=== PATIENT | female | born 2000 | race Caucasian/White ===

== ENCOUNTER 2023-04-20 17:08 | Emergency (ER) | payer OTHER, SELFPAY ==
[2023-04-20 17:18] VITALS: BP 121/77; PULSE 94; RESP 18; TEMP 36.2; O2SAT 97; BMI 31.8
--- NOTE | 2023-04-20 17:26 | CRLHL7_ITS ---
For Patients: As a result of the Century Cures Act, medical imaging exams and procedure reports are released immediately into your electronic medical record. You may view this report before your referring provider. If you have questions, please contact your health care provider. INDICATION: Question left abscess. TECHNIQUE: CT images acquired through the neck following intravenous contrast. COMPARISON: None. FINDINGS Asymmetric enlargement of the left palatine tonsil. Peripherally enhancing lesion in the left peritonsillar region measuring approximately 8 x 8 x 12 mm (TR/AP/CC), compatible with abscess. Mild stranding within the left parapharyngeal fat. No retropharyngeal edema. Mild narrowing of the oropharyngeal airway. The hypopharynx and larynx are widely patent. No enhancing lesions within the oral cavity or floor of mouth. The parotid and submandibular glands are unremarkable. Enlarged bilateral level II lymph nodes are nonspecific, though demonstrate elongated morphology and are most likely reactive. Limited images through the brain are without pathologic intracranial enhancement. The visualized paranasal sinuses and mastoid air cells are clear. No aggressive osseous lesions. No concerning opacities in the visualized lungs. IMPRESSION: 1. Left peritonsillar abscess measuring 1.2 cm associated with mild narrowing of the oropharyngeal airway and inflammatory stranding in the left parapharyngeal space. 2. Multiple enlarged bilateral level II lymph nodes are likely reactive. Please note that all CT scans at this facility use dose modulation, iterative reconstruction, and/or weight-based dosing when appropriate to reduce radiation dose to as low as reasonably achievable. Dictated by Kam Osorio MD @ 04/20/2023 6:45:24 PM (Electronically Signed)
--- NOTE | 2023-04-20 18:24 | ED.NURSE ---
20G IV placed in pt's LEFT ac by radiology. IV patent and intact.
--- NOTE | 2023-04-20 18:26 | ED.GENADULT ---
HPI - General Adult General Chief complaint: Sore Throat Stated complaint: sore throat, enlarged tonsils Time Seen by Provider: 04/20/23 18:19 History of Present Illness HPI narrative: This 22-year-old female comes in with her mother because of sore throat that is been present for the past 2 weeks. She was sent here for CT scan with suspicion of a peritonsillar abscess. The patient states that she has been taking [id number] medicines and is also finished of 5 day course of a steroid. She does not report any fevers. She feels that her left side of her throat is more swollen and painful. She does have some muffled voice but does not have trismus. Related Data Home Medications Medication Instructions Recorded Confirmed ibuprofen 200 mg tablet (Advil) 200 mg PO Q8H 04/20/23 04/20/23 phenylephrine HCl 10 mg tablet 10 mg PO Q6H 04/20/23 04/20/23 (Sudafed PE) Review of Systems Status of ROS: Reports: 10 or more systems reviewed and unremarkable except as noted in History and below Narrative: Constitutional: No fevers, no weight gain or loss. Eyes: No discharge. No vision changes. HENT: Sore throat as described above. Cardiovascular: No chest pain, no palpitations. Respiratory: No shortness of breath, no wheezes, no cough. Gastrointestinal: No abdominal pain, no vomiting, no diarrhea. Genitourinary: No dysuria, no hematuria. Musculoskeletal: Normal range of motion. Skin: No rashes, no pruritis. Neurological: No dizziness, weakness, sensory change, speech change. Endo/Heme/Allergies: No bruising or bleeding. No polydipsia. Pysch: no suicidality, no anxiety, no insomnia. All other systems reviewed and are negative. [facility] Social History Smoking Status: Never smoker Do you use any of these nicotine containing products: None Second hand tobacco smoke exposure: No How often do you have a drink containing alcohol: never AUDIT-C Alcohol total score: 0 Non-prescribed substance use: denies use service: No Exam Narrative: Exam Narrative: Constitutional: Well-developed, well-nourished, no acute distress. HEENT: Normocephalic, atraumatic. Bilateral pharyngeal erythema and hypertrophy, left greater than right. Cervical lymphadenopathy also left greater than right. She has some muffled voice but no trismus. Neck: Normal range of motion. Nontender. Supple. Heart: Regular. No murmurs. Normal rate. Intact distal pulses. Lungs: Clear to auscultation. No chest discomfort. No wheezes, rhonchi, or rales. Abdomen: Normal bowel sounds. Nontender. No rebound tenderness. Genitalia: Deferred. Back: No midline tenderness. Normal range of motion. Extremities: Normal range of motion. No injury. Skin: Intact. No rash. Warm. No erythema or pallor. Neurologic: No altered sensation. No weakness. Alert and oriented. Psychiatric: No suicidality. No anxiety or depression. No insomnia. Nursing notes and vitals signs are reviewed. Const: Vital Signs, click to edit/add: Vital Signs - 24 hr 04/20/23 17:18 04/20/23 19:42 Temperature 97.1 F L Pulse Rate [Pulse Oximeter] 94 69 Respiratory Rate 18 [facility] 121/77 116/73 Pulse Oximetry 97 99 Oxygen Delivery Me thod Room Air Room Air Course Vital Signs Vital signs: Initial Vital Signs Temperature 97.1 F L 04/20/23 17:18 Temperature Source Temporal Artery Scan 04/20/23 17:18 Pulse Rate 94 04/20/23 17:18 Respiratory Rate 18 04/20/23 17:18 Blood Pressure 121/77 04/20/23 17:18 Blood Pressure Mean 91 04/20/23 17:18 Pulse Oximetry 97 04/20/23 17:18 Oxygen Delivery Method Room Air 04/20/23 17:18 Vital Signs Temperature 97.1 F L 04/20/23 17:18 Pulse Rate 94 04/20/23 17:18 Respiratory Rate 18 04/20/23 17:18 Blood Pressure 121/77 04/20/23 17:18 Pulse Oximetry 97 04/20/23 17:18 Oxygen Delivery Method Room Air 04/20/23 17:18 Temperature 97.1 F L 04/20/23 17:18 Pulse Rate 69 04/20/23 19:42 Respiratory Rate 18 04/20/23 17:18 Blood Pressure 116/73 04/20/23 19:42 Pulse Oximetry 99 04/20/23 19:42 Oxygen Delivery Method Room Air 04/20/23 19:42 Medications Administered Medications: Generic Name Dose Route Start Last Admin Trade Name Freq PRN Reason Stop Dose Admin Dexamethasone 10 mg 04/20/23 19:24 04/20/23 19:38 Dexamethasone 4 Mg/Ml Vial IV 04/20/23 19:25 10 mg ONCE ONE Administration Ampicillin Sodium/Sulbactam 100 mls @ 200 mls/hr 04/20/23 19:24 04/20/23 19:41 Sodium 3 gm/ Sodium Chloride IVPB 04/20/23 19:25 200 mls/hr ONCE ONE Administration Medical Decision Making MDM Narrative Medical decision making narrative: This patient comes in with 2 weeks of sore throat that now includes worsening discomfort and muffled voice. An IV is established and CT imaging of the soft tissue of the neck is obtained. This does show evidence of a left peritonsillar abscess measuring 1.2 cm. I spoke with ear nose and throat physician Dr. Tillman regarding this finding and he recommended admission into the hospital for IV antibiotics and steroid. I made this recommendation to the patient and her mother who states that they would really prefer to return home if possible. I spoke again with Dr. Tillman regarding this request to stated that it was okay for them to return home but will need to come back for repeat dose of these medicines. The patient received IV doses of Unasyn 3 mg and Decadron 10 mg here. An order is placed for repeat doses of these medicines. Imaging Data CT Soft tissue Neck: Radiologist's impression: 1. Left peritonsillar abscess measuring 1.2 cm associated with mild narrowing of the oropharyngeal airway and inflammatory stranding in the left parapharyngeal space. 2. Multiple enlarged bilateral level II lymph nodes are likely reactive. Discharge Plan Discharge Clinical Impression: Abscess, peritonsillar Patient Disposition: Home w/ Parent or Adult Condition: Stable Additional Instructions: Return in 6-12 hours for repeat IV doses of Unasyn and Decadron. An order is placed for this to occur so that she do not need to be evaluated again by have physician unless symptoms are not improving or worsening. Prescriptions: No Action ibuprofen [Advil] 200 mg tablet 200 mg PO Q8H phenylephrine HCl [Sudafed PE] 10 mg tablet 10 mg PO Q6H Follow Up/Referrals: Karla Vila MD [Primary Care Provider] - Stand Alone Forms: [employer] Info Instructions
[2023-04-20] MEDS: dexAMETHasone 4 MG/ML VIAL 10 MG IV (19:38)
[2023-04-20] MEDS: AMPICILLIN/SULBACTAM 3 GM in 0.9 % SODIUM CHLORIDE Mini-bag 100 ML IVPB (19:41)
[2023-04-20 19:42] VITALS: BP 116/73; PULSE 69; O2SAT 99
== END 2023-04-20 20:25 | disposition home or self-care (01) ==
PROVIDERS: Emergency Provider Emergency Medicine Emergency Medical Services; PCP Family Medicine
DX: J36 Peritonsillar abscess (principal)
CPT/HCPCS: 70491; 96365; 96375; 99283; 99284; J0295; J1100; Q9967

== ENCOUNTER 2023-04-21 13:38 | Outpatient (CLI) | payer OTHER, SELFPAY ==
[2023-04-21] MEDS: AMPICILLIN/SULBACTAM 3 GM in 0.9 % SODIUM CHLORIDE Mini-bag 100 ML IVPB ×3 (07:30→20:18)
[2023-04-21] MEDS: dexAMETHasone 10 MG/ML inj IVP ×2 (08:00→20:17)
[2023-04-21 08:36] VITALS: BP 128/83; PULSE 88; RESP 18; TEMP 36.4; O2SAT 97
[2023-04-21 13:38] VITALS: BP 122/81; PULSE 87; RESP 16; TEMP 36.2; O2SAT 97
[2023-04-21 20:20] VITALS: BP 128/83; PULSE 88; RESP 18; TEMP 36.7; O2SAT 97
[2023-04-21 20:21] VITALS: BP 128/83; PULSE 88; RESP 18; TEMP 36.7; O2SAT 97
[2023-04-21 20:32] VITALS: BP 132/75; PULSE 69; RESP 18; TEMP 37; O2SAT 96
--- NOTE | 2023-04-21 20:54 | ED.NURSE ---
iv abx infused without difficulty. iv dc'd. catheter intact. vitals stable. pt. dc'd home.
== END 2023-04-21 23:00 | disposition home or self-care (01) ==
LOC: EDOUT 07-08 13:38
PROVIDERS: PCP Family Medicine; Visit Provider Otolaryngology
DX: J36 Peritonsillar abscess (principal)
CPT/HCPCS: 80307; 96365; 96366; 96372; J0295; J1100

== ENCOUNTER 2023-05-21 11:03 | Emergency (ER) | payer BC, SELFPAY ==
[2023-05-21 11:08] VITALS: BP 124/78; PULSE 72; RESP 16; TEMP 35.7; O2SAT 97; BMI 33.1
--- NOTE | 2023-05-21 12:21 | ED_ITS ---
HPI - General Adult General Date Seen: 05/21/23 Chief complaint: Sore Throat Stated complaint: sore throat Time Seen by Provider: 05/21/23 11:09 Source: patient Mode of arrival: ambulatory Limitations: no limitations History of Present Illness HPI narrative: Patient is a 22-year-old female presenting for left-sided throat pain. She states she had these exact same symptoms little over a month ago and they were eventually were pain worsened and up needing IV antibiotics for a peritonsillar abscess. She did see Dr. Guajardo for this and ended up finishing a 10 day course of Augmentin. Symptoms resolved and she was doing well up until this past couple days which she is noticing the symptoms are coming back. She says there similar to before but not as bad. She is concerned she could be having another abscess. Denies voice changes, difficulty opening and jaw, lightheadedness, dizziness, fevers, chills, weakness, chest pain, shortness of breath. Does states she has some difficulty swallowing due to the pain. has some left ear pain, which she says is also similar to her previous abscess.No other concerns noted Related Data Previous Rx's Medication Instructions Recorded amoxicillin 875 mg-potassium 1 tab PO BID #20 tabs 05/21/23 clavulanate 125 mg tablet prednisone 20 mg tablet 40 mg (2 x 20 mg) PO DAILY #10 tabs 05/21/23 Allergies Allergy/AdvReac Type Severity Reaction Status Date / Time No Known Drug Allergies Allergy Verified 04/21/23 15:01 Review of Systems Status of ROS: Reports: 10 or more systems reviewed and unremarkable except as noted in History and below PFSH [facility] Social History Smoking Status: Never smoker Do you use any of these nicotine containing products: None Second hand tobacco smoke exposure: No How often do you have a drink containing alcohol: never AUDIT-C Alcohol total score: 0 Non-prescribed substance use: denies use service: No Exam Narrative: Exam Narrative: Const: Well-nourished, Well-developed, in mild distress Eyes: PERRL, no conjunctival injection, and symmetrical lids HENT: Atraumatic external nose and ears. Moist mucous membranes. uvula midline, very swollen bilateral tonsils about equal Neck: Symmetric, trachea midline, No thyromegaly. CVS: RRR, No murmurs or gallops. Peripheral pulses 2+ and equal in all extremities RESP: Unlabored respiratory effort. Clear to auscultation bilaterally. GI: Nontender/Nondistended, No rebound or guarding. MSK:Extremities w/o deformity, Normal Active ROM Skin: Warm, Dry. No rashes or lesions. Neuro: Normal Muscle tone, No focal neurological deficits. Psych: Awake, Alert, & Oriented x3. Appropriate mood and affect. Const: Vital Signs, click to edit/add: Vital Signs - 24 hr 05/21/23 11:08 Temperature 96.2 F L Pulse Rate [Pulse Oximeter] 72 Respiratory Rate 16 Blood Pressure [[facility]i ght Upper Arm] 124/78 Pulse Oximetry 97 Oxygen Delivery Me thod Room Air Course Vital Signs Vital signs: Initial Vital Signs Temperature 96.2 F L 05/21/23 11:08 Temperature Source Temporal Artery Scan 05/21/23 11:08 Pulse Rate 72 05/21/23 11:08 Respiratory Rate 16 05/21/23 11:08 Blood Pressure 124/78 05/21/23 11:08 Blood Pressure Mean 93 05/21/23 11:08 Blood Pressure Position Sitting 05/21/23 11:08 Pulse Oximetry 97 05/21/23 11:08 Oxygen Delivery Method Room Air 05/21/23 11:08 Vital Signs Temperature 96.2 F L 05/21/23 11:08 Pulse Rate 72 05/21/23 11:08 Respiratory Rate 16 05/21/23 11:08 Blood Pressure 124/78 05/21/23 11:08 Pulse Oximetry 97 05/21/23 11:08 Oxygen Delivery Method Room Air 05/21/23 11:08 Temperature 96.2 F L 05/21/23 11:08 Pulse Rate 72 05/21/23 11:08 Respiratory Rate 16 05/21/23 11:08 Blood Pressure 124/78 05/21/23 11:08 Pulse Oximetry 97 05/21/23 11:08 Oxygen Delivery Method Room Air 05/21/23 11:08 Medications Administered Medications: Discontinued Medications Generic Name Dose Route Start Last Admin Trade Name Freq PRN Reason Stop Dose Admin Dexamethasone 10 mg 05/21/23 13:00 05/21/23 12:49 Dexamethasone 2 Mg Tablet PO 05/21/23 13:01 10 mg ONCE ONE Administration Ampicillin Sodium/Sulbactam 100 mls @ 200 mls/hr 05/21/23 11:51 05/21/23 13:17 Sodium 3 gm/ Sodium Chloride IVPB 05/21/23 11:52 Infused ONCE ONE Infusion Medical Decision Making MDM Narrative Medical decision making narrative: Patient is a 22-year-old female presenting for left-sided throat. These are similar symptoms to 1 month ago when she began to develop a peritonsillar abscess. The symptoms are not as bad. With her history of though I am concerned she is developing another abscess. No obvious deviation seen on exam but I will start her on a dose of Unasyn. Monos, strep, COVID/flu/RSV test all ordered. Those tests all returned negative. While I am concerned about a peritonsillar abscess forming her last 1 was very small and did not need any drainage in the symptoms are not as bad. Due that I believe is very early in the process and very unlikely there would be a drainable abscess at this time. I do not think is necessary to have this 22-year-old female go through another round of CT radiation this soon. I spoke to her and her mother about this plan and they are agreeable. She will be given 1 dose of Unasyn here and placed on Augmentin. She is also given some Decadron here and discharged with some steroids which she says has helped in the past for these symptoms. I informed the follow-up with her ENT provider again which they are agreeable to Lab Data Labs: Lab Results 05/21/23 05/21/23 Range/Units 12:00 12:15 SARS-CoV-2 (PCR) Negative SARS-CoV-2 (Negative) Monoscreen Negative (Negative) Influenza Type A (PCR) Negative PCR FLU A (Negative) Influenza Type B (PCR) Negative PCR FLU B (Negative) Group A Strep DNA NOT DETECTED (Not Detectd) Discharge Plan Discharge Clinical Impression: Acute tonsillitis Qualifiers: Pharyngitis/tonsillitis etiology: unspecified etiology Qualified Code(s): J03.90 - Acute tonsillitis, unspecified Patient Disposition: Home, Self-Care Condition: Stable Instructions: Tonsillitis (ED) Additional Instructions: take the antibiotics as directed. If her voice starts becoming more muffled or she has difficulty opening her jaw, or any other concerning changes to her symptoms return to the emergency department for re-evaluation. Recommend you follow-up with ENT for re-evaluation of her tonsils. Prescriptions: New prednisone 20 mg tablet 40 mg PO DAILY Qty: 10 0RF amoxicillin-pot clavulanate 875-125 mg tablet 1 tab PO BID Qty: 20 0RF Follow Up/Referrals: Karla Vila MD [Primary Care Provider] - Stand Alone Forms: [employer] Info Instructions
[2023-05-21 12:30] LABS: Mono Screen* Negative (Negative)
[2023-05-21] MEDS: AMPICILLIN/SULBACTAM 3 GM in 0.9 % SODIUM CHLORIDE Mini-bag 100 ML IVPB (12:37)
[2023-05-21 12:46] LABS: Strep A DNA Probe* NOT DETECTED (Not Detectd)
[2023-05-21] MEDS: dexAMETHasone 2 MG TABLET 10 MG PO (12:49)
[2023-05-21 12:52] LABS: PCR FLU A Negative PCR FLU A (Negative); PCR FLU B Negative PCR FLU B (Negative)
[2023-05-21 13:00] LABS: SARS PCR* Negative SARS-CoV-2 (Negative)
== END 2023-05-21 13:30 | disposition home or self-care (01) ==
PROVIDERS: Emergency Provider Student in an Organized Health Care Education/Training Program; PCP Family Medicine
DX: J03.90 Acute tonsillitis, unspecified (principal)
CPT/HCPCS: 36415; 86308; 87631; 87651; 96365; 99283; 99284; A9270; J0295

== ENCOUNTER 2024-04-23 21:12 | Emergency (ER) | payer BC, SELFPAY ==
[2024-04-23 21:14] VITALS: BP 113/71; PULSE 113; RESP 16; TEMP 37.6; O2SAT 95; BMI 31.5
--- NOTE | 2024-04-23 21:40 | ED_ITS ---
HPI - Fever General Time Seen by Provider: 21:40 Date Seen: 04/23/24 Chief Complaint: Fever Stated Complaint: Temp 103.1 Time Seen by Provider: 04/23/24 21:18 Source: patient and family (Mom is with.) Mode of arrival: ambulatory Limitations: no limitations History of Present Illness HPI Narrative: This 23-year-old female is coming into the ER with 5 days of fever. She had 3 days of fever proceeding development of symptoms of right upper back pain, epigastric abdominal pain. She has had a headache with her symptoms. She denies any otalgia, no upper respiratory symptoms, no cough or chest symptoms. She has not really had any nausea or vomiting but has not been hungry. Denies any diarrhea. No change in urinary symptoms. 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 She is unaware of any known ill contacts. No recent travel. She has been alternating Tylenol and ibuprofen, she has been sweating through her pajamas at night. She went home from [employer] to stay in her parents whom live in [place]. She took about a 4 hour nap and woke up and was sweating through her clothes. Their scheduled for a clinic visit tomorrow but she felt sick enough tonight that she felt she needed to be seen. She has had a history of tonsillitis and peritonsillar abscess but absolutely has no throat symptoms at this time. She last took ibuprofen about 750 tonight, Tylenol about 4:00 p.m.. She has been trying some Tums which does seem to help some of the epigastric symptoms she has been having. elicited complaint: fever Related Data Previous Rx's ?Medication ?Instructions ?Recorded amoxicillin 875 mg-potassium 1 tab PO BID #20 tabs 03/27/24 clavulanate 125 mg tablet ciprofloxacin HCl 500 mg tablet 500 mg PO BID #19 tabs 04/24/24 Allergies Allergy/AdvReac Type Severity Reaction Status Date / Time No Known Drug Allergies Allergy Verified 04/23/24 23:07 Review of Systems Status of ROS Reports: 6 or more systems reviewed and unremarkable except as noted in History and below [facility] Social History Smoking Status: Never smoker Do you use any of these nicotine containing products: None Second hand tobacco smoke exposure: No How often do you have a drink containing alcohol: never AUDIT-C Alcohol total score: 0 Non-prescribed substance use: denies use service: No Exam Const Vital Signs, click to edit/add: Vital Signs - 24 hr 04/23/24 21:14 Temperature 99.6 F Pulse Rate [Right Radial] 113 H Respiratory Rate 16 Blood Pressure [Right Upper Arm] 113/71 Pulse Oximetry 95 Oxygen Delivery Method Room Air This 23-year-old female is alert interactive, no apparent distress. Do see where she is sweating through her T-shirt. Skin is warm and dry on her arms and neck, not diaphoretic. Pupils equal round reactive, sclera clear. Symmetrical facial function. Oropharynx with well-hydrated mucosa, tonsils are about 2+ but no exudates erythema, oral mucosal looks normal. Neck is supple, no adenopathy, no thyromegaly masses or nodules. Lungs are clear, good air entry, no wheezing or crackles. CV regular rate and rhythm, no murmur. Maybe some mild CVA tenderness. Abdomen is soft, nondistended, normal bowel sounds. She has epigastric to right upper quadrant abdominal pain on my palpation. I do not feel any organomegaly, no rebound or guarding. Skin visualized without any rash. Documenting provider has reviewed patient's vital signs: yes Course Course ED Course: Edie has had fever for 5 days now, there is some right flank pain and some epigastric to right upper quadrant abdominal pain. Her mom and I have discussed etiologies including possible gallbladder, pyelonephritis. Will place an IV as we may end up needing CT imaging. Will start with full complement of labs including inflammatory markers as well. Consider blood culture depending on workup but with her being hemodynamically stable, with blood culture shortage, do not feel it is indicated at this point. She will try to give us urinalysis as soon as possible. Reevaluation(s) Time of Reevaluation #1: 22:32 Reevaluation #1: Reviewed with patient and her mom that the urinalysis is positive for infection. Her lactate is normal but the rest of the labs are not back yet. Discussed imaging, she will be leaving in 2 weeks to study abroad in [facility]. With the level of pain she is having, certainly could be from 5 days of untreated pyelonephritis but want to ensure that there are no complications such as perine phric abscess, etc.. They are in agreement to proceed with imaging and would like to have this done. Time of Reevaluation #2: 23:17 Reevaluation #2: Patient is back from CT. Did review that this is appearing to be pyelonephritis. We need to await her CT imaging to come back. If uncomplicated pyelonephritis, will plan on course of oral Cipro on review of literature. The did remember that she had some urinary symptoms about a month ago, push fluids and seemed to go away and thus did not pursue anything further. She does note now that she is started to get up at night urinate which she typically has not done in the past. Time of Reevaluation #3: 23:51 Reevaluation #3: Have reviewed with patient and mom CT report, consistent with pyelonephritis. Will give oral cipro here and send rest into pharmacy. She certainly seems stable for outpatient oral trial of antibiotics. Discussed signs and symptoms for return. Vital Signs Vital signs: Initial Vital Signs Temperature 99.6 F 04/23/24 21:14 Temperature Source Temporal Artery Scan 04/23/24 21:14 Pulse Rate 113 H 04/23/24 21:14 Pulse Rhythm Regular 04/23/24 21:14 Respiratory Rate 16 04/23/24 21:14 Blood Pressure 113/71 04/23/24 21:14 Blood Pressure Mean 85 04/23/24 21:14 Pulse Oximetry 95 04/23/24 21:14 Oxygen Delivery Method Room Air 04/23/24 21:14 Vital Signs Temperature 99.6 F 04/23/24 21:14 Pulse Rate 113 H 04/23/24 21:14 Respiratory Rate 16 04/23/24 21:14 Blood Pressure 113/71 04/23/24 21:14 Pulse Oximetry 95 04/23/24 21:14 Oxygen Delivery Method Room Air 04/23/24 21:14 Temperature 99.6 F 04/23/24 21:14 Pulse Rate 113 H 04/23/24 21:14 Respiratory Rate 16 04/23/24 21:14 Blood Pressure 113/71 04/23/24 21:14 Pulse Oximetry 95 04/23/24 21:14 Oxygen Delivery Method Room Air 04/23/24 21:14 Medications Administered Medications: Discontinued Medications Generic Name Dose Route Start Last Admin Trade Name Freq PRN Reason Stop Dose Admin Sodium Chloride 500 mls @ 500 mls/hr 04/23/24 22:34 04/23/24 22:41 0.9 % Sodium Chloride 500 Ml IV 04/23/24 23:33 500 mls/hr .Q1H ONE Administration Ketorolac Tromethamine 15 mg 04/23/24 22:34 04/23/24 22:41 Ketorolac 15 Mg/Ml Inj IVP 04/23/24 22:35 15 mg ONCE ONE Administration MDM - Fever Lab Data Attestation: I reviewed the patient's lab results. Labs: Lab Results 04/23/24 04/23/24 04/23/24 Range/Units 21:38 21:45 22:00 WBC 16.95 H (4.50-11.00) K/uL RBC 4.51 (4.00-5.20) m/uL Hgb 12.3 (12.0-16.0) gm/dL Hct 37.9 (33.0-51.0) % MCV 84 (80-100) fL MCH 27 (26-34) pg MCHC 33 (32-36) gm/dL RDW Coeff of Courtney 12.4 (11.5-15.5) % Plt Count 325 (140-440) K/uL Neut % (Auto) 77.1 H (42.0-72.0) % Lymph % (Auto) 8.3 L (20-44) % [place] % (Auto) 13.9 H (0.0-11.0) % Eos % (Auto) 0.1 (0.0-7.0) % Baso % (Auto) 0.1 (0.0-3.0) % Neut # (Auto) 13.10 H (1.7-7.0) K/uL Lymph # (Auto) 1.40 (0.90-2.90) K/uL [place] # (Auto) 2.40 H (0.00-0.90) K/UL Eos # (Auto) 0.00 (0.00-0.50) K/uL Baso # (Auto) 0.00 (0.00-0.30) K/uL Abs Immat Gran (auto) 0.10 (0.00-0.30) K/uL Imm/Tot Granulo (auto) 0.5 % Diff Slide Review Acceptable Review (Acceptable) Sodium 134 L (135-149) mmol/L Potassium 3.2 L (3.6-5.1) mmol/L Chloride 99 (96-114) mmol/L Carbon Dioxide 28 (20-32) mmol/L Anion Gap 7 (7-15) mEq/L BUN 10 (5-24) mg/dL Creatinine 0.8 (0.5-1.5) mg/dL Estimated Creat Clear 104.14 Estimated GFR 107 ml/min Glucose 114 (60-115) mg/dL Lactate 0.8 (0.5-1.9) mmol/L Calcium 9.5 (8.4-10.6) mg/dL Total Bilirubin 0.3 (0.1-1.5) mg/dL Direct Bilirubin 0.2 (0.0-0.5) mg/dL AST 23 (12-35) U/L ALT 19 (4-35) U/L Alkaline Phosphatase 93 (40-150) U/L C-Reactive Protein 25.6 H (0.5-1.0) mg/dL Total Protein 7.5 (6.0-8.3) g/dL Albumin 4.0 (3.3-5.0) g/dL Lipase 37 (23-300) U/L Procalcitonin 0.31 (<0.50) ng/mL Urine Color Yellow (Yellow) Urine Appearance Slightly Cloudy A (Clear) Urine pH 6.5 (5.0-8.5) Ur Specific [place] 1.015 (1.000-1.030) Urine Protein 1+ A (Negative) Urine Glucose (UA) Negative (Negative) Urine Ketones Negative (Negative) Urine Blood Trace-lysed A (Negative) Urine Nitrite Positive A (Negative) Urine Bilirubin Negative (Negative) Urine Urobilinogen 0.2 (0.2-1.0) Ur Leukocyte Esterase 2+ A (Negative) Urine RBC 0-2 (0-2) Urine WBC 5-10 A (0-5) Ur Squamous Epith Cells Few (None-Few) Urine Bacteria Moderate A (None) SARS-CoV-2 (PCR) Negative SARS-CoV-2 (Negative) Influenza Type A (PCR) Negative PCR FLU A (Negative) Influenza Type B (PCR) Negative PCR FLU B (Negative) Imaging Data CT scan - abdomen: Attestation: I have reviewed the pertinent imaging results. Radiologist's impression: Patient: EDIE MACDONALD Facility:?[facility] Patient ID:?[id number] Site Patient ID:?[id number]. Site :?[id number] Study:?CT-Abdomen/Pelvis W/ 95CC ISOVUE 370-04/23/2024 11:09:51 PM Ordering Physician:Beth Tejeda Final Report: INDICATION: Right flank pain. Fever. TECHNIQUE: Multiplanar CT examination of the abdomen and pelvis was performed after the administration of 95 mL Isovue 370 intravenous contrast. COMPARISON: None. FINDINGS: Lower chest: No focal consolidation. Normal heart size. No pleural effusions or pneumothorax. Dependent atelectasis. Small hiatal hernia. Liver: Unremarkable. Gallbladder: Unremarkable. Biliary: Unremarkable. Pancreas: Within normal limits. Spleen: Simple appearing splenic cystic lesion. Adrenal glands: Unremarkable. Renal/ureters/bladder: Heterogeneous striated enhancement of the right renal parenchyma without abscess formation. Mild right perinephric fat stranding. There is hyperenhancement of the renal pelvis and ureter with adjacent periureteral fat stranding. The left kidney appears normal without obstructive uropathy. No obstructing urolithiasis identified. The bladder is within normal limits. Pelvis: Intrauterine device. No adnexal masses. Gastrointestinal: No bowel wall thickening or bowel obstruction. Normal appendix. No significant colonic diverticulosis. Mild colonic stool burden. Vasculature: No aortic aneurysm. The portal vein remains patent. No significant atherosclerotic calcifications. Lymph nodes: No pathologic lymphadenopathy by size criteria. Peritoneum: No free fluid or pneumoperitoneum. No drainable fluid collections. Abdominal wall/soft tissues: Unremarkable. Bones: No acute osseous abnormalities. IMPRESSION: Findings compatible with acute right-sided pyelonephritis/ureteritis. Please note that all CT scans at this facility use dose modulation, iterative reconstruction, and/or weight-based dosing when appropriate to reduce radiation dose to as low as reasonably achievable. Dictated by Yoav Jasso MD @ 04/23/2024 11:49:34 PM (Electronic Signature) Discharge Plan Discharge Clinical Impression: Pyelonephritis Patient Disposition: Home, Self-Care Condition: Stable Instructions: Kidney Infection (ED) Additional Instructions: Continue with Cipro, next dose due tomorrow morning. Take antibiotic as prescribed complete antibiotic. Fine to use Tylenol and ibuprofen alternating per bottle directions for fever and symptom control. You may still run fever and have symptoms for 3-5 days. Overall, you should start to show some mild improvement and not worsening. Push fluids appetite for solids will improve as you feel better. If you have any concerns, feel you are worsening, please seek re-evaluation. Do recommend that you have a follow-up urine culture once the antibiotics are completed to make sure that this is cleared. Activity Level: Activity as Tolerated Prescriptions: New ciprofloxacin HCl 500 mg tablet 500 mg PO BID Qty: 19 0RF No Action amoxicillin-pot clavulanate 875-125 mg tablet 1 tab PO BID Qty: 20 2RF Follow Up/Referrals: Karla Vila MD [Primary Care Provider] - Stand Alone Forms: [employer] Info Instructions
--- OUTSIDE RECORDS SUMMARY | 2024-04-23 21:46 | XMS_ITS | Clinical Summary ---
Author Organization [facility] Address [address] [place] [address] Care Team Providers Care Able Bodied Seaman Name Role Phone Elsewhere, Pcp Primary Care Provider Unavailabl e Source Comments Patient records contain information from all sites at [facility]. For routine questions regarding patient records, call [phone] during business hours, M-F 8:00 AM - 5:00 PM Central Time. Record requests for emergency care only can be directed to [phone] at any time.[facility] Allergies No known active allergies Medications No known medications Immunizations Name Administration Dates Next Due HepA Pediatric/Adolescent 11/13/2013 Influenza, Unspecified 02/23/2016,05/26/2012, MCV4 (Menactra)(Discontinued) 11/13/2013 Tdap 11/13/2013 influenza trivalent LAIV (Na jose angel) (2 years through 49 years) 02/13/2013 typhoid vaccine, parenteral (discontinued) 11/13 Social History Tobacco Use Types Packs/Day Years Used Date Smoking Tobacco: Never Nutrition Answer Date Recorded Nutrition: EVOO Fat Source Unknown 07/17 Nutrition: Servings of Fruits/Vegetables per Day Not on file 07/17/2020 Dental Answer Date Recorded Dental: Regular Dentist Unknown 07/18/19 21 Comments Unknown Sex and Gender Information Value Date Recorded Sex Assigned at Not on file Legal 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 Gender Identity Not on file Sexual Orientation Not on file Last Filed Vital Signs Vital Sign Reading Time Taken Comments Blood Pressure - - Pulse - - Temperature - - Respiratory Rate - - Oxygen Saturation - - Inhaled Oxygen Concentration - - Weight 83.2 kg (183 lb 6.8 oz) 05/02/2020 4:25 P M INDUCTION MACHINE OPERATOR Height 148 cm (4' 10.27) 11/13/2013 7:32 AM CDT Body Mass Index - - Plan of Treatment Health Maintenance Due Date Last Done Comments Cervical/Vaginal Cancer Screening 2002 Chlamydia and Gonorrhea Screening 2002 HIV Screening 2002 Hearing Screening during Well Child Visit 2002 Hepatitis C Screening 2002 TB Screening during Well Child Visit 2002 1 week Well Child Check-Up 2002 1 month Well Child Check-Up 2002 2 month Well Child Check-Up 2002 4 month Well Child Check-Up 01/07/2003 6 month Well Child Check-Up 03/09/2003 9 month Well Child Check-Up 06/09/2003 12 month Well Child Check-Up 09/08/2003 15 month Well Child Check-Up 12/08/2003 18 month Well Child Check-Up 03/09/2004 2 year Well Child Check-Up 09/07/2004 30 month Well Child Check-Up 03/09/2005 3 year Well Child Check-Up 09/07/2005 Well Child Check-Up Completed in Past Year 09/07/2005 4 year Well Child Check-Up 09/07/2006 5 year Well Child Check-Up 09/08/2007 6 year Well Child Check-Up 09/07/2008 7 year Well Child Check-Up 09/07/2009 8 year Well Child Check-Up 09/07/2010 9 year Well Child Check-Up 09/08/2011 10 year Well Child Check-Up 09/07/2012 11 year Well Child Check-Up 09/07/2013 12 year Well Child Check-Up 09/07/2014 13 year Well Child Check-Up 09/08/2015 14 year Well Child Check-Up 09/07/2016 15 year Well Child Check-Up 09/07/2017 16 year Well Child Check-Up 09/07/2018 17 year Well Child Check-Up 09/08/2019 18 year Well Child Check-Up 09/07/2020 19 year Well Child Check-Up 09/07/2021 20 year Well Child Check-Up 09/07/2022 Depression Screening (Annual PHQ-2) 05/16/2023 23 year Well Child Check-Up 09/08/2023 Well Child Check-Up (WCC) 09/08/2023 DTaP,Tdap,and Td Vaccines (7 - Td or Tdap) 11/14/2023 11/13/2013, 11/06/2007, 01/17/2004, Additional history exists COVID-19 Vaccine ( season) 2024 04/06/2023, 02/25/2022, 04/07/2021, Additional history exists Influenza Vaccine (#1) 2024 , 02/25/2022, 03/10/2021, Additional history exists Pneumococcal vaccine (0-64 years) Aged Out 04/15/2003, 02/11/2003, 2002 No longer eligible based on patient's age to complete this topic Hepatitis B Vaccines Completed 01/17/2004, 04/15/2003, 02/11/2003, Additional history exists IPV Vaccines Completed 11/06/2007, 07/2003, 04/15/2003, Additional history exists HPV Vaccines Completed 03/14/2018, 04/27/2017 Meningococcal Vaccine Completed 12/15/2018, 014 Insurance MEDICA MEDICA Care Teams Able Bodied Seaman Relationship Specialty Start Date End Date Elsewhere, Pcp PCP - General 04/15/19
--- OUTSIDE RECORDS SUMMARY | 2024-04-23 21:46 | XMS_ITS | Clinical Summary ---
Author Organization [facility] Address [place], [place] [address] Care Team Providers Care Production Line Manager Name Role Phone Cadence, Karla Lafleur MD Primary Care Provider Allergies No known active allergies Medications amoxicillin-clav ulanate 875-125 mg tablet (AUGMENTIN) TAKE 1 TABLET BY MOUTH TWICE DAILY FOR 10 DAYS 04/21/2023 Active Hospital, Clinic, or Other Facility Administered Medication Ordered Dose Route Frequency Start Date End Date Status levonorgestrel intrauterine device (MIRENA) 1 DeviceIndications:Encounter for female control 1 Device IU Q 7 YEARS 12/31/2021 Active Active Problems No known active problems Immunizations Name Administration Dates Next Due DTaP 11/06/2007,01/17/2004 [id number] (Pediarix) 01/17/2004,1205/2002,02/11/2003,12/06 HIB PRP-OMP (PedvaxHIB) 11/22/2003,02/11/2003, HPV 9 (Gardasil 9) 03/14/2018,04/27/2017 Hepatitis A (Peds) 04/27/2017,11/13/2013 Hepatitis B (Peds) 04/15/2003,02/11/2003, 003 Inactivated Polio Vaccine 11/06/2007,05/2002,02/11/2003,12/06 Influenza A (H1N1), Live Intranasal 04/03/2009 Influenza Virus, Unspecified 04/07/2011 Influenza, IIV3 (Age 6-35 mos) 05/16/2003,2002 Influenza, IIV3 (Age >=3 years) 05/26/19 13,03/12/2008,05/02/2006,03/13,05/20/2003,04/15/2003 Influenza, IIV4 04/06/2023, 8,04/27/2017,02/22 Influenza,LAIV4 Live Intrana jose angel (Flumist) 02/13/2013 MENINGOCOCCAL VACCINE 2 VIAL [id number] (MENVEO) 12/15/2018 MMR 11/06/2007,11/22/2003 Meningococcal Vaccine (Menactra) 11/13/2013 Pneumococcal conj 7-Valent (Prevnar 7) 3,02/11/2003,2002 Tdap 11/13/2013 Typhoid Parenteral,Killed 11/13/2013 Varicella Vaccine 11/06/2007,01/17/2004 Family History Medical History Relation Name Comments No Known Problems Brother No Known Problems Father No Known Problems Mother No Known Problems Sister Relation Name Status Comments Brother Alive Father Alive Mother Alive Sister Alive Social History Tobacco Use Types Packs/Day Years Used Date Smoking Tobacco: Never Smokeless Tobacco: Never Alcohol Use Standard Drinks/Week Comments Never 0 (1 standard drink = 0.6 oz pur e alcohol) PHQ-2 Answer Date Recorded PHQ-2 TOTAL SCORE 0 09/26/2020 Social Connections Answer Date Recorded Do you often feel lonely or isolated from those around you? 0 04/20/2023 Financial Resource Strain Answer Date R ecorded Difficulty of Paying Living Expenses 3 04/20/2023 Difficulty of Paying Living Expenses Not on file 04/20/2023 Food Insecurity Answer Date Recorded Do you worry your food will run out before you are able to buy more? 1 04/20/2023 Transportation Needs Answer Date Record ed Does lack of transportation keep you from medica l appointments? 1 04/20/2023 Does lack of transportation keep you from work, meetings or getting things that you need? 1 04/20/2023 Housing Stability Answer Date Recorded What is your housing situation today? 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 Gender Identity Not on file Sexual Orientation Not on file Obstetrics History Last Filed Vital Signs Vital Sign Reading Time Taken Comments Blood Pressure 100/68 04/29/2023 3:33 PM VP BUSINESS DEVELOPMENT Pulse 76 04/29/2023 3:33 PM VP BUSINESS DEVELOPMENT Temperature 36.8 C (98.3 F) 04/20/2023 3:27 PM VP BUSINESS DEVELOPMENT Respiratory Rate - - Oxygen Saturation 98% 04/29/2023 3:33 PM VP BUSINESS DEVELOPMENT Inhaled Oxygen Concentration - - Weight 91.9 kg (202 lb 9.6 oz) 04/29/2023 3:33 P M VP BUSINESS DEVELOPMENT Height 169 cm (5' 6.54) 04/20/2023 3:27 PM VP BUSINESS DEVELOPMENT Body Mass Index - - Plan of Treatment Upcoming Encounters Date Type Department Care Team (Late st Contact Info) Description 04/24/2024 9:00 AM VP BUSINESS DEVELOPMENT Office Visit [facility] [address] [place] [address] Yulissa Au MD [address] [place] [address] 04/27/2024 11:05 AM VP BUSINESS DEVELOPMENT Office Visit [facility] [address] [place] [address] Rosario Randhawa MD [address] [place] [address] Health Maintenance Due Date Last Done Comments Hepatitis C screening for age 18-79 2020 Depression screening for age 12+ 09/26/2021 09/26/2020, 12/15/2018 Pap test for age 21-65 10/08/2023 Tetanus booster 11/14/2023 11/13/2013 COVID-19 vaccine series ( season) 2024 04/06/2023, 02/25/2022, 04/07/2021, Additional history exists Influenza for age 9-49 01/15/2024 , 03/14/2018, 04/27/2017, Additional history exists BMI (ht and wt on same day) for age 18+ 04/20/2024 04/20/2023 Pneumococcal series for age 6-64 Aged Out 04/15/2003, 02/11/2003, 2002 No longer eligible based on patient's age to complete this topic Tdap Completed 11/13/2013 HPV series for age 9-26 Completed 03/14/2018, 04/27 Meningococcal series for age 11-21 Completed 12/15/2018, 11/13/2013 HIV for age 15-65 Completed 11/20/2020 Procedures Procedure Name Priority Date/Time Associated Diagnosis Comments ANTI HIV 1/2 Routine 11/20/2020 10:19 AM CDT Screening for HIV (human immunodeficiency virus) from Last 3 Months or Most Recently Relevant to Health Maintenance Results * ANTI HIV 1/2 [09626.0] (11/20/2020 10:19 AM CDT) HIV-1/HIV-2 ANTIBODY Non-Reacti ve Non-Reacti ve 11/20/2020 6:16 PM CDT [facility] Comment:HIV-1 p24 and HIV-1/ HIV-2 Ab not detected. Blood BLOOD SPECIMEN / Unknown Venipuncture / Unknown 11/20/2020 10:19 AM CDT 11/20/2020 10:19 AM CDT us Karla Vila MD SEND OUTS Final R esult [facility] [address] [place] [address], [place] from Last 3 Months or Most Recently Relevant to Health Maintenance Insurance [facility] Care Teams Production Line Manager Relationship Specialty Start Date End Date Karla Vila MD [address] [place] [address] PCP - General Family Practice 11/19/20
--- OUTSIDE RECORDS SUMMARY | 2024-04-23 21:46 | XMS_ITS ---
Author Organization [facility] Address [address] [place] [address] Care Team Providers Care Specialty Trimmer Name Role Phone Unavailable Unavailable Unavailable Surgery Details Not on file Complications Check Surgery Details section. Procedure Estimated Blood Loss Check Surgery Details section. Procedure Findings Check Surgery Details section. Procedure Specimens Taken Check Surgery Details section.
--- OUTSIDE RECORDS SUMMARY | 2024-04-23 21:46 | XMS_ITS | Referral Summary ---
Author Organization [facility] Address [address] [place] [address] Care Team Providers Care Senior Geotechnical Engineer Name Role Phone Elsewhere, Pcp Primary Care Provider Unavailabl e Source Comments Patient records contain information from all sites at [facility]. For routine questions regarding patient records, call [phone] during business hours, M-F 8:00 AM - 5:00 PM Central Time. 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
[2024-04-23 22:06] LABS: Lactate* 0.8 mmol/L (0.5-1.9)
[2024-04-23 22:12] LABS: Basophils Percent Auto 0.1 % (0.0-3.0); Eosinophils Percent Auto 0.1 % (0.0-7.0); Hematocrit 37.9 % (33.0-51.0); Hemoglobin* 12.3 gm/dL (12.0-16.0); Immature Granulocytes Pct Auto 0.5 %; Lymphocytes Percent Auto 8.3 % (20-44); Mean Corpuscular HGB Conc 33 gm/dL (32-36); Mean Corpuscular Hemoglobin 27 pg (26-34); Mean Corpuscular Volume 84 fL (80-100); Monocytes Percent Auto 13.9 % (0.0-11.0); Neutrophils Percent Auto 77.1 % (42.0-72.0); Platelet Count* 325 K/uL (140-440); RDW Coefficient of Variation % 12.4 % (11.5-15.5); Red Blood Count 4.51 m/uL (4.00-5.20); White Blood Count* 16.95 K/uL (4.50-11.00)
[2024-04-23 22:14] LABS: Appearance Urine Slightly Cloudy (Clear); Bilirubin Urine Negative (Negative); Blood Urine Trace-lysed (Negative); Color Urine Yellow (Yellow); Glucose Urine Negative (Negative); Ketones Urine Negative (Negative); Leukocyte Esterase Urine 2+ (Negative); Nitrite Urine Positive (Negative); Protein Urine 1+ (Negative); Specific Gravity Urine 1.015 (1.000-1.030); Urobilinogen Urine 0.2 (0.2-1.0); pH Urine 6.5 (5.0-8.5)
[2024-04-23 22:22] LABS: Bacteria Urine Moderate; RBC Urine 0-2 (0-2); Squamous Epithelial Cell Urine Few (None-Few)
[2024-04-23 22:31] LABS: Chloride* 99 mmol/L (96-114)
[2024-04-23 22:32] LABS: Potassium* 3.2 mmol/L (3.6-5.1); Sodium* 134 mmol/L (135-149)
--- NOTE | 2024-04-23 22:33 | CRLHL7_ITS ---
For Patients: As a result of the Century Cures Act, medical imaging exams and procedure reports are released immediately into your electronic medical record. You may view this report before your referring provider. If you have questions, please contact your health care provider. INDICATION: Right flank pain. Fever. TECHNIQUE: Multiplanar CT examination of the abdomen and pelvis was performed after the administration of 95 mL Isovue 370 intravenous contrast. COMPARISON: None. FINDINGS: Lower chest: No focal consolidation. Normal heart size. No pleural effusions or pneumothorax. Dependent atelectasis. Small hiatal hernia. Liver: Unremarkable. Gallbladder: Unremarkable. Biliary: Unremarkable. Pancreas: Within normal limits. Spleen: Simple appearing splenic cystic lesion. Adrenal glands: Unremarkable. Renal/ureters/bladder: Heterogeneous striated enhancement of the right renal parenchyma without abscess formation. Mild right perinephric fat stranding. There is hyperenhancement of the renal pelvis and ureter with adjacent periureteral fat stranding. The left kidney appears normal without obstructive uropathy. No obstructing urolithiasis identified. The bladder is within normal limits. Pelvis: Intrauterine device. No adnexal masses. Gastrointestinal: No bowel wall thickening or bowel obstruction. Normal appendix. No significant colonic diverticulosis. Mild colonic stool burden. Vasculature: No aortic aneurysm. The portal vein remains patent. No significant atherosclerotic calcifications. Lymph nodes: No pathologic lymphadenopathy by size criteria. Peritoneum: No free fluid or pneumoperitoneum. No drainable fluid collections. Abdominal wall/soft tissues: Unremarkable. Bones: No acute osseous abnormalities. IMPRESSION: Findings compatible with acute right-sided pyelonephritis/ureteritis. Please note that all CT scans at this facility use dose modulation, iterative reconstruction, and/or weight-based dosing when appropriate to reduce radiation dose to as low as reasonably achievable. Dictated by Yoav Jasso MD @ 04/23/2024 11:49:34 PM (Electronically Signed)
[2024-04-23 22:34] LABS: Creatinine* 0.8 mg/dL (0.5-1.5); Est. Creatinine Clearance* 104.14; Estimated Glomerular Filt Rate 107 ml/min
[2024-04-23 22:35] LABS: Alanine Aminotransferase* 19 U/L (4-35); Alkaline Phosphatase* 93 U/L (40-150); Aspartate Amino Transferase* 23 U/L (12-35); Bilirubin Direct* 0.2 mg/dL (0.0-0.5); Bilirubin Total* 0.3 mg/dL (0.1-1.5); Blood Urea Nitrogen* 10 mg/dL (5-24); Calcium* 9.5 mg/dL (8.4-10.6); Glucose* 114 mg/dL (60-115); Total Protein* 7.5 g/dL (6.0-8.3)
[2024-04-23] MEDS: 0.9 % SODIUM CHLORIDE 500 ML 500 ML IV (22:41)
[2024-04-23] MEDS: KETOROLAC 15 MG/ML inj IVP (22:41)
[2024-04-23 22:43] LABS: Anion Gap 7 mEq/L (7-15); Carbon Dioxide* 28 mmol/L (20-32)
[2024-04-23 22:43] LABS: Slide Review Reflex Yes
[2024-04-23 22:44] LABS: Slide Review Acceptable Review (Acceptable)
[2024-04-23 22:46] LABS: PCR FLU A Negative PCR FLU A (Negative); PCR FLU B Negative PCR FLU B (Negative); SARS PCR* Negative SARS-CoV-2 (Negative)
[2024-04-23 22:51] LABS: C Reactive Protein* 25.6 mg/dL (0.5-1.0)
[2024-04-23 22:57] LABS: Lipase* 37 U/L (23-300)
[2024-04-23 23:15] LABS: Procalcitonin* 0.31 ng/mL (<0.50)
[2024-04-23] MEDS: CIPROFLOXACIN 500 MG TABLET PO (23:59)
== END 2024-04-24 00:16 | disposition home or self-care (01) ==
PROVIDERS: Emergency Provider Family Medicine; PCP Family Medicine
DX: N12 Tubulo-interstitial nephritis, not specified as acute or chronic (principal)
CPT/HCPCS: 36415; 74177; 80053; 81001; 82248; 83605; 83690; 84145; 85025; 86140; 87086; 87186; 87631; 96361; 96374; 99284; 99285; A9270; J1885; J7030; Q9967

== ENCOUNTER 2024-12-21 12:28 | Day surgery (SDC) | payer BC, SELFPAY ==
[2024-12-21] VITALS (14 sets, daily range): BP systolic 101–122; BP diastolic 61–83; PULSE 55–106; RESP 16–21; TEMP 36.3–37; O2SAT 91–100
[2024-12-21] MEDS: LACTATED RINGERS 500 ML 500 ML 50 ML IV (13:30)
--- NOTE | 2024-12-21 13:35 | SUR.PREOP ---
Patient refused HCG test due to IUD and she stated, there is no way I am
--- NOTE | 2024-12-21 14:05 | W.PM.ENTPROC ---
Procedure Note Date of procedure: 12/21/24 Procedure: Preop diagnosis chronic tonsillitis postoperative diagnosis same Procedure tonsillectomy Under general trach anesthesia patient was prepped draped usual fashion. The McIvor mouth gag was inserted the tongue retracted forward. The uvula was noted to be markedly elongated the members portion was trimmed to prevent swelling postoperatively The right tonsil was removed with a combination of needlepoint bipolar cautery. Meticulous hemostasis was achieved with suction cautery. This was repeated on the left side in identical fashion. Specimens were sent to pathology. The patient procedure well was taken recovery in satisfactory condition. Blood loss was 5 mL. Surgeon: Christo Joe MD
[2024-12-21] MEDS: LACTATED RINGERS 1000 ML 1,000 ML 100 ML IV (14:15)
--- NOTE | 2024-12-21 14:22 | P.ANES_ITS ---
Anesthesia Charges Start Date/Time Anesthesia Start Date: 12/21/24 Anesthesia Start Time: 13:41 Stop Date/Time Anesthesia Stop Date: 12/21/24 Anesthesia Stop Time: 14:19 Coding CPT Codes CPT Codes: ANESTH PROCEDURE ON MOUTH - 58632 ([id number]) P2 - PATIENT W/MILD SYST DISEASE, QK - MANAGER ADMINISTRATIVE 2-4 CNCRNT ANES PROC, QX - PHOTOVOLTAIC INSTALLATION TECHNICIAN SVC W/ MD MED DIRECTION
--- NOTE | 2024-12-21 14:22 | W.ANESCHARGE ---
Anesthesia Charges Start Date/Time Anesthesia Start Date: 12/21/24 Anesthesia Start Time: 13:41 Stop Date/Time Anesthesia Stop Date: 12/21/24 Anesthesia Stop Time: 14:19 Coding CPT Codes CPT Codes: ANESTH PROCEDURE ON MOUTH - 21428 ([id number]) P2 - PATIENT W/MILD SYST DISEASE, QK - VACUUM METALIZER OPERATOR 2-4 CNCRNT ANES PROC, QX - EXCELSIOR MACHINE TENDER SVC W/ MD MED DIRECTION
[2024-12-21] MEDS: SODIUM CHLORIDE 0.9 % (FLUSH) 10 ML SYRINGE IVF ×2 (14:30→14:45)
--- NOTE | 2024-12-21 14:37 | SUR.PHASEI ---
Patient awake and stated she is having throat pain. No nausea when asked. Vital signs stable. Talkative, taking ice chips.
--- NOTE | 2024-12-21 14:57 | SUR.PHASEI ---
Patient meets discharge criteria from PACU.
--- NOTE | 2024-12-21 15:06 | P.ANES_ITS ---
Anesthesia Charges Start Date/Time Anesthesia Start Date: 12/21/24 Anesthesia Start Time: 13:41 Stop Date/Time Anesthesia Stop Date: 12/21/24 Anesthesia Stop Time: 14:19 Coding CPT Codes CPT Codes: ANESTH PROCEDURE ON MOUTH - 77963 ([id number]) QK - SCALLOP DREDGER 2-4 CNCRNT ANES PROC, QX - COMMAND POST CRAFTSMAN SVC W/ MD MED DIRECTION, P2 - PATIENT W/MILD SYST DISEASE
--- NOTE | 2024-12-21 15:06 | W.ANESCHARGE ---
Anesthesia Charges Start Date/Time Anesthesia Start Date: 12/21/24 Anesthesia Start Time: 13:41 Stop Date/Time Anesthesia Stop Date: 12/21/24 Anesthesia Stop Time: 14:19 Coding CPT Codes CPT Codes: ANESTH PROCEDURE ON MOUTH - 82346 ([id number]) QK - SENIOR RD ENGINEER 2-4 CNCRNT ANES PROC, QX - SOLIDS CONTROL TECHNICIAN SVC W/ MD MED DIRECTION, P2 - PATIENT W/MILD SYST DISEASE
[2024-12-21] MEDS: IBUPROFEN 100 MG/5 ML SUSP 200 MG PO (15:15)
[2024-12-21] MEDS: ACETAMINOPHEN 160 MG/5 ML CUP 320 MG PO (15:15)
== END 2024-12-21 16:17 | disposition home or self-care (01) ==
PROVIDERS: PCP Family Medicine; Visit Provider Otolaryngology
PROC: (CPT 42826; principal; 2024-12-21 13:45)
DX: J35.01 Chronic tonsillitis (principal)
CPT/HCPCS: 42826; 00170; 88304; A9270; J0330; J1100; J2250; J2405; J2704; J3010; J3490; J7120